=== PATIENT | male | born 1965 | race Caucasian/White ===

== ENCOUNTER 2017-03-11 16:09 | Inpatient (IN) | payer OTHER ==
[~2017-03-11] VITALS: Ht 175.3 cm; Wt 134.3 kg
[2017-03-11 17:35] LABS: BASOPHIL COUNT 0.1 K/uL (0-0.1); EOSINOPHIL (%) 1.3 % (0-5); EOSINOPHIL COUNT 0.2 K/uL (0-0.3); HEMATOCRIT 44.8 % (38.0-50.0); IMMATURE GRANULOCYTE (%) 0.6 % (0.0-0.7); IMMATURE GRANULOCYTE COUNT 0.1 K/uL; INSTRUMENT ABS NEUTROPHIL CT 9.3 K/uL; LYMPHOCYTE COUNT 1.3 K/uL (1.0-2.8); MCH 29.7 PG (29.0-34.0); MCHC 34.4 G/DL (30.0-36.0); MCV 86.5 FL (86-99); MEAN PLAT.VOLUME 8.6 uM^3 (9.0-12.4); MONOCYTE (%) 5.4 % (3-12); MONOCYTE COUNT 0.6 K/uL (0-0.8); NEUTROPHIL (%) 80.7 % (45-76); NEUTROPHIL COUNT 9.3 K/uL (1.8-6.4); PLATELET COUNT 412 K/uL (156-360); RBC DIS.WIDTH-CV 12.2 % (11.8-14.6); RED BLOOD COUNT 5.18 M/uL (4.00-5.50); WHITE BLOOD COUNT 11.5 K/uL (4.1-10.2)
[2017-03-11 17:46] LABS: CHLORIDE 103 mEq/L (99-109); POTASSIUM 4.5 mEq/L (3.7-5.4); SODIUM 137 mEq/L (136-147)
[2017-03-11 17:48] LABS: GLUCOSE 165 mg/dL (70-99)
[2017-03-11 17:49] LABS: ANION GAP 9 MEQ/L (2-14)
[2017-03-11 17:51] LABS: GFR ESTIMATE (CALCULATED) > 59 mL/min/
[2017-03-11 17:52] LABS: UREA NITROGEN (BUN) 13 mg/dL (9-23)
[2017-03-11 18:23] LABS: SAMPLE HEMOLYSIS CHECK 0; SAMPLE ICTERIC CHECK 0; SAMPLE LIPEMIA CHECK 0
[2017-03-11] MEDS ORDERED: QUINAPRIL HCL10 MG PO (19:05)
[2017-03-11] MEDS ORDERED: FINASTERIDE5 MG PO (19:06)
[2017-03-11] MEDS ORDERED: METFORMIN HCL500 MG PO (19:06)
[2017-03-11] MEDS ORDERED: AMANTADINE100 MG PO (19:06)
[2017-03-11] MEDS ORDERED: BACLOFEN20 MG PO (19:07)
[2017-03-11] MEDS ORDERED: NAPROXEN500 MG PO (19:08)
[2017-03-11] MEDS ORDERED: CARBAMAZEPINE200 MG PO (19:09)
[2017-03-11] MEDS ORDERED: CORTIZONE-10 PL57 GM TP (19:10)
[2017-03-11] MEDS ORDERED: LYRICA50 MG PO (19:12)
[2017-03-12] VITALS (18 sets, daily range): BP systolic 119–167; BP diastolic 59–89
[2017-03-12 06:38] LABS: POINT-OF-CARE METER ID UU14174217
[2017-03-12 07:18] LABS: HEMATOCRIT 43.3 % (38.0-50.0); MCH 28.9 PG (29.0-34.0); MCHC 33.7 G/DL (30.0-36.0); MCV 85.6 FL (86-99); MEAN PLAT.VOLUME 8.9 uM^3 (9.0-12.4); PLATELET COUNT 448 K/uL (156-360); RBC DIS.WIDTH-CV 12.2 % (11.8-14.6); RBC DIS.WIDTH-SD 38.1 % (39-53); RED BLOOD COUNT 5.06 M/uL (4.00-5.50)
[2017-03-12 07:51] LABS: ALKALINE PHOSPHATASE 68 IU/L (3-129); ANION GAP 12 MEQ/L (2-14); CHLORIDE 99 MEQ/L (99-109); GFR ESTIMATE (CALCULATED) > 59 mL/min/; GLUCOSE 173 mg/dL (70-99); MAGNESIUM 2.1 mg/dl (1.3-2.7); SAMPLE HEMOLYSIS CHECK 0; SAMPLE ICTERIC CHECK 0; SAMPLE LIPEMIA CHECK 0; SODIUM 136 MEQ/L (136-147); TOTAL BILIRUBIN 0.5 MG/DL (0.0-1.0); UREA NITROGEN (BUN) 10 mg/dL (9-23)
[2017-03-12 08:03] LABS: METH RESISTANT S AUREUS PCR NEGATIVE (NEGATIVE); PROBE CHECK PASS; SPECIMEN PROCESSING CONTROL PASS
[2017-03-12 12:32] LABS: POINT-OF-CARE METER ID UU14174217
[2017-03-12 15:21] LABS: POINT-OF-CARE METER ID UU13113696
[2017-03-12 16:25] LABS: POINT-OF-CARE METER ID UU14174217
[2017-03-13] VITALS (17 sets, daily range): BP systolic 125–179; BP diastolic 61–122
[2017-03-13 06:22] LABS: POINT-OF-CARE METER ID UU13113731
[2017-03-13 11:56] LABS: POINT-OF-CARE METER ID UU14162636
[2017-03-13 17:46] LABS: POINT-OF-CARE METER ID UU13113731
[2017-03-13 21:43] LABS: POINT-OF-CARE METER ID UU14174217
[2017-03-14] VITALS (10 sets, daily range): BP systolic 110–203; BP diastolic 59–108
[2017-03-14 10:53] LABS: POINT-OF-CARE METER ID UU13113731
[2017-03-14 14:07] LABS: POINT-OF-CARE METER ID UU13113731
[2017-03-14 18:49] LABS: POINT-OF-CARE METER ID UU13113731
[2017-03-15] VITALS (20 sets, daily range): BP systolic 111–181; BP diastolic 61–99
[2017-03-15 08:02] LABS: ANION GAP 10 MEQ/L (2-14); CHLORIDE 102 MEQ/L (99-109); POTASSIUM 4.4 MEQ/L (3.7-5.4); SAMPLE HEMOLYSIS CHECK 0; SAMPLE ICTERIC CHECK 0; SAMPLE LIPEMIA CHECK 0; SODIUM 137 MEQ/L (136-147)
[2017-03-15 08:21] LABS: GFR ESTIMATE (CALCULATED) > 59 mL/min/; GLUCOSE 141 mg/dL (70-99); UREA NITROGEN (BUN) 16 mg/dL (9-23)
== END 2017-03-15 23:23 | disposition short-term general hospital (02) | DRG 74 ==
LOC: EME 16:09 → EDOF 20:25 → 3EAST 22:30 → 4WEST 03-12 05:19
PROVIDERS: Emergency Medicine; Internal Medicine
PROC: 3E0T3BZ Introduction of Anesthetic Agent into Peripheral Nerves and Plexi, Percutaneous Approach (ICD-10-PCS; principal; 2017-03-12)
DX: G50.0 Trigeminal neuralgia (principal); Z68.41 Body mass index [BMI] 40.0-44.9, adult; I10 Essential (primary) hypertension; E11.9 Type 2 diabetes mellitus without complications; E66.01 Morbid (severe) obesity due to excess calories; G35 Multiple sclerosis; G47.33 Obstructive sleep apnea (adult) (pediatric); N40.0 Benign prostatic hyperplasia without lower urinary tract symptoms; R09.02 Hypoxemia; R00.0 Tachycardia, unspecified; R41.0 Disorientation, unspecified
CPT/HCPCS: 70450; 70487; 70553; 80048; 80053; 80069; 80156; 82948; 83735; 84100; 85025; 85027; 87641; 93005; 94799; 99281; 99285; G0378; G9033; J1100; J1165; J1170; J1200; J1630; J1644; J1815; J2060; J2250; J2270; J2930; J3010; J3360; J7030; J7040; J7050